=== PATIENT | female | born 1940 | race Caucasian/White ===

== ENCOUNTER 2024-07-28 07:33 | Inpatient (IN) | payer OTHER ==
[~2024-07-28] VITALS: Ht 167.6 cm; Wt 74.4 kg
[2024-07-28] MEDS: ACETAMINOPHEN 500 MG TABLET PO ONE (09:04)
[2024-07-28] MEDS: GABAPENTIN 300 MG CAPSULE PO ONE (09:04)
[2024-07-28] MEDS: oxyCODONE HCL 10 MG TAB.ER.12H PO ONE ×2 (10:24→21:47)
[2024-07-28] MEDS ORDERED: oxyCODONE HCL 5 MG TABLET PO PRN ×2 (11:00)
[2024-07-28] MEDS ORDERED: HYDROmorphone 1 MG/ML INJ. CARTRIDGE IVP PRN ×6 (11:00→14:30)
[2024-07-28] MEDS ORDERED: LORATADINE 10 MG TABLET PO PRN (11:00)
[2024-07-28] MEDS ORDERED: ONDANSETRON HCL 4 MG/2 ML VIAL IVP PRN (11:45)
[2024-07-28] MEDS ORDERED: LR 1,000 ML IV.SOLN IV ONE (12:30)
[2024-07-28] MEDS ORDERED: VANCOMYCIN HCL 1000 MG/VIAL IV ONE (12:30)
[2024-07-28] MEDS ORDERED: GLYCOPYRROLATE 0.2 MG/ML VIAL ONE (12:30)
[2024-07-28] MEDS ORDERED: TRANEXAMIC ACID 1,000 MG/10 ML VIAL ONE (12:30)
[2024-07-28] MEDS ORDERED: NS IRRIG SOLN 1000 ML IR ONE (12:30)
[2024-07-28] MEDS ORDERED: PROPOFOL 200MG/ 20ML VIAL (DIPRIVAN) IV ONE (12:30)
[2024-07-28] MEDS ORDERED: ceFAZolin SODIUM 2 GM VIAL ONE (12:30)
[2024-07-28] MEDS ORDERED: ROCURONIUM BROMIDE 10 MG/ML (ZEMURON) ONE (12:30)
[2024-07-28] MEDS ORDERED: WATER FOR IRRIGATION,STERILE 1,000 ML IRRIG.SOLN IR ONE (12:30)
[2024-07-28] MEDS ORDERED: BUPIVACAINE /PF 0.25% 30 ML VIAL INJ ONE (12:30)
[2024-07-28] MEDS ORDERED: NEOSTIGMINE METHYLSULFATE 1 MG/ML, 10 ML VIAL ONE (12:30)
[2024-07-28] MEDS ORDERED: SEVOFLURANE 15 MIN GAS INH ONE (12:30)
[2024-07-28] MEDS ORDERED: PHENYLEPHRINE HCL 10 MG/ML VIAL (NEOSYNEPHRINE) ONE (12:30)
[2024-07-28] MEDS ORDERED: hydrALAZINE HCL 20 MG/ML VIAL IV PRN (14:30)
[2024-07-28] MEDS ORDERED: NALOXONE HCL 0.4 MG/ML AMP (NARCAN) IVP PRN ×7 (14:30→15:15)
[2024-07-28] MEDS ORDERED: BISACODYL 10 MG/SUPPOSITORY RC PRN (15:15)
[2024-07-28] MEDS ORDERED: DIPHENHYDRAMINE HCL 25 MG CAPSULE PO PRN (15:15)
[2024-07-28] MEDS ORDERED: METOCLOPRAMIDE HCL 10 MG/2 ML VIAL IVP PRN (15:15)
[2024-07-28] MEDS ORDERED: LACTULOSE 20 GM/30 ML UDC PO PRN (15:15)
[2024-07-28] MEDS: ONDANSETRON HCL 4 MG/2 ML VIAL IVP PRN (16:00)
[2024-07-28] MEDS ORDERED: LOVA40TA75 PO (16:22)
[2024-07-28] MEDS ORDERED: LOSA-415 PO (16:22)
[2024-07-28] MEDS ORDERED: ASPI-1047 PO (16:22)
[2024-07-28] MEDS ORDERED: POTA-197 PO (16:22)
[2024-07-28] MEDS ORDERED: METO50TA7 PO (16:22)
[2024-07-28] MEDS ORDERED: VIT1TABL84 PO (16:22)
[2024-07-28] MEDS ORDERED: HYDR12.585 PO (16:22)
[2024-07-28 17:33] VITALS: BP_SYST 146; PULSE 74; RESP 16; TEMP 95.6
[2024-07-28 19:00] VITALS: BP_SYST 175; PULSE 85; RESP 18; TEMP 97.3; O2SAT 97
[2024-07-28 20:00] VITALS: BP_SYST 160; PULSE 77; RESP 16; TEMP 96.9; O2SAT 99
[2024-07-28] MEDS: ACETAMINOPHEN 500 MG TABLET ONE (21:47)
[2024-07-28] MEDS: GABAPENTIN 300 MG CAPSULE ONE (21:47)
[2024-07-28] MEDS: fentaNYL CITRATE/PF 100 MCG/2 ML AMP ONE (21:48)
[2024-07-28] MEDS: ONDANSETRON HCL 4 MG/2 ML VIAL ONE (21:48)
[2024-07-28] MEDS: PROPOFOL DRIP 100 ML IV ONE (21:48)
[2024-07-28] MEDS: HYDROmorphone 2 MG/ML VIAL ONE (21:48)
[2024-07-28] MEDS: MIDAZOLAM HCL 2 MG/2 ML VIAL (VERSED) ONE (21:48)
[2024-07-28] MEDS: SENNOSIDES/DOCUSATE SODIUM 1 TAB TABLET(SENOKOT-S) PO SCH (22:00)
[2024-07-28] MEDS: ACETAMINOPHEN 500 MG TABLET PO SCH (22:00)
[2024-07-29] VITALS: BP_SYST 165; PULSE 81; RESP 16; TEMP 96.9; O2SAT 98
[2024-07-29] MEDS: KETOROLAC TROMETHAMINE 10 MG TABLET (TORADOL) PO SCH (02:46)
[2024-07-29] MEDS: ceFAZolin SODIUM 2 GM in D5W 50 ML IV SCH (02:46)
[2024-07-29 08:00] VITALS: BP_SYST 136; PULSE 78; RESP 18; TEMP 98.8; O2SAT 99
[2024-07-29] MEDS: HYDROCHLOROTHIAZIDE 12.5 MG CAPSULE (HCTZ) PO SCH (10:10)
[2024-07-29] MEDS: traMADol HCL HCL 50 MG TABLET (ULTRAM) PO PRN (10:11)
[2024-07-29] MEDS: LOSARTAN POTASSIUM 50 MG TABLET (COZAAR) PO SCH (10:12)
[2024-07-29] MEDS: ASPIRIN 81 MG TAB.CHEW PO SCH (10:13)
[2024-07-29] MEDS: METOPROLOL SUCCINATE 50 MG TAB.SR.24H (TOPROL XL) PO SCH (10:13)
[2024-07-29] MEDS: CELECOXIB 200 MG CAPSULE PO SCH (11:00)
[2024-07-29 12:52] VITALS: BP_SYST 147; PULSE 78; RESP 17; TEMP 97.2; O2SAT 97
[2024-07-29 14:26] VITALS: BP_SYST 138; PULSE 87; RESP 18; TEMP 98.6; O2SAT 96
== END 2024-07-29 15:00 | disposition home or self-care (01) | DRG 470 ==
LOC: SMU 07:33
PROVIDERS: ADMIT Orthopaedic Surgery Sports Medicine; ATTEND Orthopaedic Surgery Sports Medicine
PROC: 0SR90JZ Replacement of Right Hip Joint with Synthetic Substitute, Open Approach (ICD-10-PCS; principal; 2024-07-28 12:35)
DX: M16.11 Unilateral primary osteoarthritis, right hip (principal); Z79.899 Other long term (current) drug therapy
CPT/HCPCS: 72170-TC; 76000; 87081; 88304; 88311; 96379; 97110-GP; 97116-GP; 97530-GP; A4649; C1713; C1776; J1171; J2250; J2405; J2704; J2710; J3010; J3370; J3490; J7060; J7120